=== PATIENT | male | born 1945 | race Hispanic/Latino ===

== ENCOUNTER 2021-05-14 08:07 | Day surgery (SDC) | payer OTHER ==
[2021-05-14] MEDS ORDERED: DEXTROSE 50% IN WATER (25GM) 50 ML SYRINGE IV SCH (10:00)
[2021-05-14 10:20] VITALS: BP 156/62
[2021-05-14] MEDS ORDERED: ceFAZolin/Water 2 GM/20 ML 0 GM/0 ML SYRINGE IV ONE (11:20)
[2021-05-14] MEDS ORDERED: SODIUM CHLORIDE P/F VIAL 10 ML 20 ML ONE (11:28)
--- NOTE | 2021-05-14 11:37 | Event Note ---
Date: 05/14/21 Patient originally scheduled for cystoscopy w/ botox injection under local only, per patient request. Upon arrival to preoperative area, I was informed by surgeon that this procedure would require at least sedation. On my assessment, patient reported worsening exertional dysnea and chest pain. Review of recent cardiology evaluation from 04/2021 shows that patient is currently undergoing work up for these symptoms and that LHC is recommended. I discussed with the patient and surgeon my concern for possible untreated CAD and risk for adverse cardiac events perioperatively given the symptoms described. Per surgeon, case will be postponed at this time. I explained this to the patient and advised him that preoperative cardiac eval/optimization would be required prior to proceeding with planned surgery under MAC or GA. Patient verbalized understanding and was discharged from PACU.
== END 2021-05-14 08:08 | disposition home or self-care (01) ==
LOC: OR 08:07
PROVIDERS: ATTEND Urology
DX: N32.81 Overactive bladder (principal); E78.00 Pure hypercholesterolemia, unspecified; E11.40 Type 2 diabetes mellitus with diabetic neuropathy, unspecified; E03.9 Hypothyroidism, unspecified; Z79.899 Other long term (current) drug therapy; Z88.6 Allergy status to analgesic agent; Z88.8 Allergy status to other drugs, medicaments and biological substances; Z91.041 Radiographic dye allergy status; Z98.890 Other specified postprocedural states; Z53.8 Procedure and treatment not carried out for other reasons
CPT/HCPCS: 82962; J0690